=== PATIENT | female | born 1990 | race Asian ===

== ENCOUNTER 2017-09-08 00:13 | Inpatient (IN) | payer SELFPAY ==
[~2017-09-08] VITALS: Ht 173 cm; Wt 77.1 kg
[2017-09-08 01:00] VITALS: BP 117/73
[2017-09-08] MEDS ORDERED: NALBUPHINE HYDROCHLORIDE 10 MG/ML VIAL IVP PRN (01:20)
[2017-09-08] MEDS ORDERED: PROMETHAZINE 25 MG/ML VIAL IVP PRN (01:20)
[2017-09-08] MEDS ORDERED: OXYTOCIN 10 UNITS/ML VIAL IM SCH (01:20)
[2017-09-08] MEDS ORDERED: LACTATED RINGERS 1,000 ML IV SCH (01:20)
[2017-09-08 02:01] LABS: BASOPHILS # (AUTO) 0.1 K/uL (0.00-0.22); BASOPHILS % (AUTO) 0.7 % (0.0-2.0); EOSINOPHILS # (AUTO) 0.7 K/uL (0-0.4); EOSINOPHILS % (AUTO) 5.5 % (0.0-4.0); HEMATOCRIT 40.2 % (36-48); HEMOGLOBIN 13.5 g/dL (12.0-16.0); LYMPHOCYTES # (AUTO) 1.8 K/uL (2.5-16.5); LYMPHOCYTES % (AUTO) 13.8 % (20.5-51.1); MEAN CORPUSCULAR HEMOGLOBIN 31 pg (27-31); MEAN CORPUSCULAR HGB CONC 34 g/dL (33-37); MEAN CORPUSCULAR VOLUME 92 fL (80-94); MONOCYTES # (AUTO) 0.8 K/uL (0.8-1.0); MONOCYTES % (AUTO) 6.3 % (1.7-9.3); NEUTROPHILS # (AUTO) 9.5 K/uL (1.8-7.7); NEUTROPHILS % (AUTO) 73.7 % (42.2-75.2); PLATELET COUNT (AUTO) 203 K/uL (140-450); RED BLOOD CELL COUNT(AUTO) 4.39 MIL/uL (4.20-5.40); RED CELL DISTRIBUTION WIDTH 12.1 % (11.6-13.7); WHITE BLOOD COUNT (AUTO) 12.9 K/uL (4.8-10.8)
[2017-09-08 02:02] LABS: APPEARANCE,URINE CLEAR (CLEAR); BILIRUBIN,URINE NEGATIVE (NEGATIVE); BLOOD, URINE 1+ (NEGATIVE); COLOR,URINE YELLOW (YELLOW); LEUKOCYTE ESTERASE ,URINE 1+ (NEGATIVE); NITRITE, URINE NEGATIVE (NEGATIVE); UGLUCOSE NEGATIVE (NEGATIVE)
[2017-09-08 02:18] LABS: ALBUMIN 2.7 g/dL (3.4-5.0); ANION GAP 12.8 (8-16); CARBON DIOXIDE 22.8 mmol/L (21-32); CREATININE 0.6 mg/dL (0.6-1.3); POTASSIUM 3.6 mmol/L (3.5-5.1); TOTAL BILIRUBIN 0.3 mg/dL (0.0-1.0)
[2017-09-08 03:03] LABS: RBC,URINE 3-10 (FEW) /HPF (0-5)
[2017-09-08] MEDS ORDERED: MISOPROSTOL 25 MCG TAB ONE (03:10)
[2017-09-08] MEDS ORDERED: MISOPROSTOL 25 MCG TAB VG SCH (04:00)
[2017-09-08] MEDS ORDERED: INFLUENZA VIRUS VACCINE QUAD 0.5 ML SYR IMVAC SCH (04:40)
[2017-09-08] MEDS ORDERED: BUPIVACAINE 0.125%/NS PREMIX 250 ML ONE (06:56)
--- NOTE | 2017-09-08 10:03 | NUR ---
PATIENT HAS BEEN SCREENED AND CATEGORIZED LOW NUTRITION RISK. PATIENT WILL BE SEEN WITHIN 7 DAYS OF ADMISSION. 09/14/[address]
[2017-09-08] MEDS: OXYTOCIN 20 UNITS in LACTATED RINGERS 1,000 ML IV SCH (10:10)
[2017-09-08] MEDS ORDERED: OXYTOCIN 10 UNITS/ML VIAL ONE (12:44)
[2017-09-08 14:01] LABS: RAPID PLASMA REAGIN NON-REACTIVE (Non Reactiv)
[2017-09-08] MEDS ORDERED: MEASLES, MUMPS, AND RUBELLA 1 VIAL SQVAC PRN (15:55)
[2017-09-08] MEDS ORDERED: METHYLERGONOVINE 0.2 MG TAB PO PRN (15:55)
[2017-09-08] MEDS ORDERED: TEMAZEPAM 15 MG CAP PO PRN (15:55)
[2017-09-08] MEDS ORDERED: BENZOCAINE/MENTHOL 20%-0.5% 60 GM CAN TP PRN (15:55)
[2017-09-08] MEDS ORDERED: SODIUM PHOSPHATE 118 ML ENEM RC PRN (15:55)
[2017-09-08] MEDS ORDERED: METHYLERGONOVINE 0.2 MG/ML AMP IM PRN (15:55)
[2017-09-08] MEDS ORDERED: oxyCODONE/APAP 5/325 MG 1 TAB TAB PO PRN (15:55)
[2017-09-08] MEDS ORDERED: DOCUSATE SOD/SENNA 50/8.6 MG 1 TAB PO SCH (21:00)
[2017-09-08] MEDS: HYDROcodone/APAP 5/325 MG 1 TAB TAB PO PRN (21:07)
[2017-09-09 07:14] LABS: HEMATOCRIT 38.9 % (36-48); HEMOGLOBIN 13.3 g/dL (12.0-16.0)
[2017-09-09] MEDS: HYDROcodone/APAP 5/325 MG 1 TAB TAB PO PRN (08:36)
[2017-09-09] MEDS ORDERED: LEVOTHYROXINE 0.025 MG TAB PO SCH (08:44)
[2017-09-09] MEDS: IBUPROFEN 800 MG TAB PO PRN ×2 (13:30→19:40)
[2017-09-10] MEDS: IBUPROFEN 800 MG TAB PO PRN ×2 (04:47→10:28)
[2017-09-10] MEDS ORDERED: LEVOTHYROXINE 0.025 MG TAB PO SCH (06:30)
== END 2017-09-10 11:30 | disposition home or self-care (01) | DRG 775 ==
LOC: MLD 00:13 → MFCC 16:18
PROVIDERS: ADMIT Obstetrics & Gynecology; ATTEND Obstetrics & Gynecology
PROC: 10E0XZZ Delivery of Products of Conception, External Approach (ICD-10-PCS; principal; 2017-09-08)
PROC: 0W8NXZZ Division of Female Perineum, External Approach (ICD-10-PCS; 2017-09-08)
PROC: 3E0R3BZ Introduction of Anesthetic Agent into Spinal Canal, Percutaneous Approach (ICD-10-PCS; 2017-09-08)
PROC: 00HU33Z Insertion of Infusion Device into Spinal Canal, Percutaneous Approach (ICD-10-PCS; 2017-09-08)
PROC: 3E0234Z Introduction of Serum, Toxoid and Vaccine into Muscle, Percutaneous Approach (ICD-10-PCS; 2017-09-09)
DX: O80 Encounter for full-term uncomplicated delivery (principal); Z23 Encounter for immunization; Z37.0 Single live birth; Z3A.38 38 weeks gestation of pregnancy
CPT/HCPCS: 36415; 51702; 59200; 80053; 81001; 85018; 85025; 86592; 86886; 86900; 86901; 87086; 90715; J2590; J3490; J7120